=== PATIENT | male | born 1975 | race Hispanic/Latino ===

== ENCOUNTER 2017-12-05 17:22 | Emergency (ER) | payer OTHER ==
[~2017-12-05] VITALS: Ht 182.9 cm; Wt 131.5 kg
[2017-12-05] MEDS ORDERED: NORCO 7.5-3251 EACH PO (18:05)
[2017-12-05] MEDS ORDERED: ROBAXIN-750750 MG (18:05)
[2017-12-05] MEDS ORDERED: KETOROLAC TROMETHAMINE 60 MG/2 ML VIAL IM ONE (18:15)
== END 2017-12-05 18:30 | disposition home or self-care (01) ==
LOC: FSED 17:22
DX: M54.31 Sciatica, right side (principal); M51.26 Other intervertebral disc displacement, lumbar region; R03.0 Elevated blood-pressure reading, without diagnosis of hypertension
CPT/HCPCS: 99282; J1885